=== PATIENT | male | born 1990 | race Caucasian/White ===

== ENCOUNTER 2017-05-01 19:37 | Emergency (ER) | payer OTHER ==
[2017-05-01 19:43] VITALS: BP 129/97; PULSE 108; TEMP 97; BMI 25.1
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
[2017-05-01] MEDS ORDERED: SODIUM CHLORIDE 0.9% 1000 ML INFUS.BAG IV ONE (21:42)
[2017-05-01] MEDS ORDERED: METOCLOPRAMIDE HCL INJECTION 10 MG/2 ML VIAL IVPB ONE (21:42)
[2017-05-01] MEDS ORDERED: METOCLOPRAMIDE HCL INJECTION 10 MG/2 ML VIAL ONE (22:02)
[2017-05-01] MEDS ORDERED: diazePAM 5 MG TABLET PO ONE (22:23)
[2017-05-01 22:29] LABS: BASOPHIL 0.3 % (0-2.0); EOSINOPHIL 1.9 % (0-4.5); MCHC 34.6 g/dl (32.0-35.9); MEAN CELL VOLUME 95.4 fl (80-96); MEAN PLT VOLUME 9.1 fl (7.5-11.1); NEUTROPHILS 63.7 % (42.8-82.8); PLATELET COUNT 179 K/MM3 (134-434); RDW 12.3 % (11.9-15.9); WHITE BLOOD COUNT 8.7 K/mm3 (4.0-10.0)
[2017-05-01] MEDS ORDERED: diazePAM 5 MG TABLET ONE (22:43)
[2017-05-01 22:58] LABS: ALBUMIN 4.3 g/dl (3.4-5.0); ALK PHOS 69 U/L (45-117); ANION GAP 6 (8-16); BILIRUBIN,TOTAL 0.7 mg/dL (0.2-1.0); CALCIUM 8.9 mg/dL (8.5-10.1); CO2 31 mmol/L (21-32); CREATININE 1.2 mg/dL (0.7-1.3); GLUCOSE,RANDOM 77 mg/dL (74-106); SGOT/AST 34 U/L (15-37); SGPT/ALT 33 U/L (12-78); TOT PROT 7.1 g/dl (6.4-8.2)
[2017-05-01] MEDS ORDERED: KETOROLAC TROMETHAMINE 30 MG/1 ML VIAL IM ONE (23:13)
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
== END 2017-05-02 00:25 | disposition home or self-care (01) ==
LOC: JER 19:37
PROC: 3E0233Z Introduction of Anti-inflammatory into Muscle, Percutaneous Approach (ICD-10-PCS; principal; 2017-05-01)
PROC: 3E033GC Introduction of Other Therapeutic Substance into Peripheral Vein, Percutaneous Approach (ICD-10-PCS; 2017-05-01)
DX: G44.209 Tension-type headache, unspecified, not intractable (principal); Z87.828 Personal history of other (healed) physical injury and trauma
CPT/HCPCS: 36415; 70450-TC; 80053; 85025; 85379; 99281-25

== ENCOUNTER 2018-07-02 10:40 | Emergency (ER) | payer OTHER ==
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
[2018-07-02 10:48] VITALS: BP 138/83; PULSE 84; TEMP 98.2; BMI 22.9
[2018-07-02] MEDS ORDERED: RANITIDINE HCL 150 MG TABLET (FP) PO ONE (11:08)
[2018-07-02] MEDS ORDERED: diphenhydrAMINE HCL 25 MG CAPSULE (FP) PO ONE (11:08)
[2018-07-02] MEDS ORDERED: RANITIDINE HCL 150 MG TABLET (FP) ONE (11:11)
[2018-07-02] MEDS ORDERED: diphenhydrAMINE HCL 50 MG CAPSULE ONE (11:11)
--- NOTE | 2018-07-02 11:41 | PDOC ---
Attending Attestation - Resident Resident Name: Ned Talley - ED Attending Attestation I have performed the following: I have examined & evaluated the patient, The case was reviewed & discussed with the resident, I agree w/resident's findings & plan, Exceptions are as noted - HPI HPI: 07/02/18 11:40 Agree with Residents HPI - Physicial Exam PE: 07/02/18 11:41 Agree with Residents PE - Medical Decision Making 07/02/18 11:40 Likely bee sting to right hand localized ALLERGIC reaction improved with Benadryl no evidence of cellulitis no evidence of stinger in place Findings, the need for follow-up and strict return instructions discussed with patient.
== END 2018-07-02 11:45 | disposition home or self-care (01) ==
LOC: FER 10:40
DX: T78.40XA Allergy, unspecified, initial encounter (principal)
CPT/HCPCS: 99281-25